=== PATIENT | male | born 1975 | race Caucasian/White ===

== ENCOUNTER → 2020-12-03 | Day surgery (SDC) | payer MEDICARE, OTHER ==
[~2020-12-03] VITALS: Ht 165.1 cm; Wt 69.8 kg
[~2020-12-03] MED LIST: DEBROX15 ML AD; DICLOFENAC SODI75 MG PO; GUAIFENESIN PS PO; IBUPROFEN800 MG PO; LIPITOR20 MG PO; MEDROL 4MG DOSEP4 MG PO; PERCOCET 5-3251 EACH PO; ZPAK PO
== END | disposition home or self-care (01) ==
LOC: FAS 08:53
DX: Z12.11 Encounter for screening for malignant neoplasm of colon (principal); D12.2 Benign neoplasm of ascending colon; D12.8 Benign neoplasm of rectum; M19.90 Unspecified osteoarthritis, unspecified site; E78.00 Pure hypercholesterolemia, unspecified; F17.200 Nicotine dependence, unspecified, uncomplicated; Z88.0 Allergy status to penicillin; Z79.899 Other long term (current) drug therapy
CPT/HCPCS: J2250; J2704; J7120

== ENCOUNTER 2020-12-26 18:50 | Emergency (ER) | payer MEDICARE, OTHER ==
[2020-12-26 19:52] LABS: BASOPHIL 0.7 % (0-2); EOSINOPHIL 3.5 % (0-5); HCT 44.5 % (42.0-52.0); HGB 14.9 g/dl (13.2-18.0); LYMPHOCYTE 39.1 % (15-48); MCH 30.8 pg (25.0-31.0); MCHC 33.5 g/dL (32.0-36.0); MCV 92.1 fL (78.0-100.0); MONOCYTE 5.2 % (0-12); MPV 10.7 fL (6.0-9.5); NEUTROPHIL 51.2 % (41-80); NRBC 0; PLT 228 K/uL (150-400); RBC 4.83 M/uL (4.70-6.00); RDW 13.5 % (11.5-14.0); WBC 11.3 K/uL (4.0-10.5)
[2020-12-26 20:08] LABS: ALBUMIN 3.7 g/dL (3.4-5.0); BILIRUBIN - TOTAL 0.4 mg/dL (0.2-1.0); BUN/CREAT RATIO (CALC) 15.9 RATIO; C-REACTIVE PROTEIN 0.7 mg/dL (<=0.90); CREATININE 0.82 mg/dL (0.67-1.17); POTASSIUM 3.1 mmol/L (3.5-5.1); TOTAL PROTEIN 6.7 g/dL (6.4-8.2)
[2020-12-26 20:26] LABS: CORONAVIRUS 2019 SARS-COV-2 NEGATIVE (NEGATIVE); INFLUENZA A NAA NEGATIVE (NEGATIVE)
[2020-12-26 22:07] LABS: BILIRUBIN NEGATIVE (NEGATIVE); BLOOD NEGATIVE Ery/uL (NEGATIVE); CLARITY CLEAR (CLEAR); COLOR YELLOW (YELLOW); GLUCOSE (U) NORMAL (NORMAL); LEUKOCYTES NEGATIVE Leu/uL (NEGATIVE); NITRITE NEGATIVE (NEGATIVE); PROTEIN NEGATIVE (NEGATIVE)
== END 2020-12-26 23:48 | disposition home or self-care (01) ==
LOC: FER 18:50
PROVIDERS: Emergency Medicine Emergency Medical Services
DX: E87.6 Hypokalemia (principal); R53.1 Weakness; Z88.0 Allergy status to penicillin; Z20.822 Contact with and (suspected) exposure to COVID-19
CPT/HCPCS: 36415; 70450; 71045; 80053; 81003; 82550; 84484; 85025; 86140; 93005; J1885; J2270; J2405; J7120; U0002

== ENCOUNTER 2021-03-20 18:22 | Emergency (ER) | payer MEDICARE, OTHER ==
[2021-03-20] MEDS ORDERED: IBUPROFEN800 MG PO (19:21)
[2021-03-20] MEDS ORDERED: MEDROL 4MG DOSEP4 MG PO (19:21)
== END 2021-03-20 19:42 | disposition home or self-care (01) ==
LOC: FER 18:22
DX: S86.211A Strain of muscle(s) and tendon(s) of anterior muscle group at lower leg level, right leg, initial encounter (principal); Z88.0 Allergy status to penicillin; X58.XXXA Exposure to other specified factors, initial encounter
CPT/HCPCS: 73564